=== PATIENT | female | born 1960 | race Caucasian/White ===

== ENCOUNTER 2017-11-13 00:09 | Inpatient (IN) | payer OTHER ==
[~2017-11-13] VITALS: Ht 154.9 cm; Wt 75.7 kg
[2017-11-13 00:13] VITALS: BP 138/92
--- NOTE | 2017-11-13 00:25 | NUR ---
PATIENT AMBULATED TO ER BED 11.
--- NOTE | 2017-11-13 00:27 | NUR ---
PATIENT IS A 57 Y/O FEMALE WHO PRESENTS TO THE ED C/O ABD PAIN. PT STATES, "MY STOMACH STARTED HURTING AT 1800 YESTERDAY." PT REPORTS 8/10 DULL, PUSHING UPPER ABD PAIN THAT DOES NOT RADIATE. PT DENIES CP, SOB, N/V/D. PT AAOX4, RR EVEN/UNLABORED. PT AAOX4, RR EVEN/UNLABORED. PT REPOSITIONED FOR COMFORT, BED IN LOWEST POSITION. ER MD DR. SALAZAR NOTIFIED. WILL CONTINUE TO MONITOR.
[2017-11-13] MEDS ORDERED: MORPHINE SULFATE 4 MG/ML SYR IM ONE (00:35)
[2017-11-13 01:05] LABS: HEMATOCRIT 41.2 % (36-48); HEMOGLOBIN 13.6 g/dL (12.0-16.0); MEAN CORPUSCULAR HEMOGLOBIN 29 pg (27-31); MEAN CORPUSCULAR HGB CONC 33 g/dL (33-37); MEAN CORPUSCULAR VOLUME 87 fL (80-94); PLATELET COUNT (AUTO) 246 K/uL (140-450); RED BLOOD CELL COUNT(AUTO) 4.73 MIL/uL (4.20-5.40); RED CELL DISTRIBUTION WIDTH 13.1 % (11.6-13.7); WHITE BLOOD COUNT (AUTO) 6.3 K/uL (4.8-10.8)
[2017-11-13 01:05] LABS: APPEARANCE,URINE CLEAR (CLEAR); BILIRUBIN,URINE NEGATIVE (NEGATIVE); BLOOD, URINE 1+ (NEGATIVE); COLOR,URINE YELLOW (YELLOW); LEUKOCYTE ESTERASE ,URINE NEGATIVE (NEGATIVE); NITRITE, URINE NEGATIVE (NEGATIVE); PH,URINE 5.5 (5.0-9.0); UGLUCOSE NEGATIVE (NEGATIVE)
[2017-11-13 01:26] LABS: LYMPHOCYTES % (MANUAL) 40 % (20-46); MONOCYTES % (MANUAL) 11 % (5-12)
[2017-11-13 01:27] LABS: ANION GAP 11.9 (8-16); CARBON DIOXIDE 27.3 mmol/L (21-32); CREATININE 0.8 mg/dL (0.6-1.3); POTASSIUM 4.2 mmol/L (3.5-5.1)
[2017-11-13 01:28] LABS: ALBUMIN 3.5 g/dL (3.4-5.0); TOTAL BILIRUBIN 0.4 mg/dL (0.0-1.0)
[2017-11-13 01:31] LABS: RBC,URINE 0-5 (RARE) /HPF (0-5); WBC,URINE 0-5 (RARE) /HPF (0-5)
[2017-11-13] MEDS ORDERED: NACL 0.9% 1,000 ML IV ONE (01:35)
[2017-11-13] MEDS ORDERED: ACETAMINOPHEN 325 MG TAB PO PRN (02:40)
[2017-11-13] MEDS ORDERED: MORPHINE SULFATE 4 MG/ML SYR IVP PRN ×2 (02:40→06:45)
[2017-11-13] MEDS ORDERED: DOCUSATE SODIUM 100 MG GELCAP PO PRN (02:40)
[2017-11-13] MEDS ORDERED: HYDROcodone/APAP 7.5/325 MG 1 TAB PO PRN (02:40)
[2017-11-13] MEDS ORDERED: ONDANSETRON 4 MG/2 ML VIAL IM/IVP PRN (02:40)
--- NOTE | 2017-11-13 02:49 | NUR ---
Patient will be admitted to care of DR. MILLS. Admited to TELE. Will go to room 106B. Belongings list completed. Report to ELVIA MCLEAN.
--- NOTE | 2017-11-13 02:56 | NUR ---
RECEIVED HANDOFF REPORT FROM AM RN. PATIENT A&OX4. PATIENT DENIES PAIN. IV SITE PATENT AND INTACT. FRIEND AT BEDSIDE. PATIENT ORIENTED TO ROOM. NO SIGNS OR SYMPTOMS OF ACUTE DISTRESS NOTED. SAFETY MEASURES ENSURED. CALL LIGHT WITHIN REACH. WILL CONTINUE TO MONITOR.
--- NOTE | 2017-11-13 03:15 | NUR ---
IN TO SEE PATIENT.
[2017-11-13 03:51] LABS: PROTHROMBIN TIME 10.4 secs (10.8-13.4)
[2017-11-13 03:52] LABS: CHOL/HDL RATIO 3.6 (1-4.5); FREE T4 (FREE THYROXINE) 0.89 ng/dL (0.76-1.46); THYROID STIMULATING HORMONE 2.42 uIU/mL (0.34-3.74)
[2017-11-13 04:00] VITALS: BP 137/76
[2017-11-13] MEDS: NACL 0.9% 1,000 ML IV SCH ×3 (04:29→20:20)
[2017-11-13] MEDS ORDERED: KETOROLAC 30 MG/ML VIAL IM PRN (06:45)
[2017-11-13 07:36] LABS: HEMATOCRIT 38.1 % (36-48); MEAN CORPUSCULAR HEMOGLOBIN 29 pg (27-31); MEAN CORPUSCULAR HGB CONC 34 g/dL (33-37); MEAN CORPUSCULAR VOLUME 85 fL (80-94); PLATELET COUNT (AUTO) 220 K/uL (140-450); RED BLOOD CELL COUNT(AUTO) 4.46 MIL/uL (4.20-5.40); RED CELL DISTRIBUTION WIDTH 12.9 % (11.6-13.7); WHITE BLOOD COUNT (AUTO) 5.5 K/uL (4.8-10.8)
--- NOTE | 2017-11-13 07:37 | NUR ---
ENDORSED PLAN OF CARE TO AM RN. PATIENT IN STABLE CONDITION.
--- NOTE | 2017-11-13 07:45 | NUR ---
RECEIVED PATIENT REPORT FROM CHARGE NURSE. PATIENT IS AWAKE AT THIS TIME. PATIENT A&OX4. PATIENT COMPLAINS OF NO PAIN AT THIS TIME. PATIENT SHOWS NO SIGNS OF RESPIRATORY DISTRESS OR RESPIRATORY DEPRESSION. PATIENT AWARE OF URINE STRAINING. WILL CONTINUE TO MONITOR PATIENT.
[2017-11-13 08:00] VITALS: BP 122/53
[2017-11-13 08:04] LABS: MAGNESIUM 1.9 mg/dL (1.8-2.4); PHOSPHORUS 3.6 mg/dL (2.5-4.9)
[2017-11-13 08:36] LABS: BASOPHILS % (MANUAL) 0 % (0-2); EOSINOPHILS % (MANUAL) 3 % (0-4); LYMPHOCYTES % (MANUAL) 50 % (20-46); MONOCYTES % (MANUAL) 8 % (5-12)
[2017-11-13] MEDS: TAMSULOSIN 0.4 MG CAP PO SCH (08:48)
--- NOTE | 2017-11-13 11:15 | NUR ---
PATIENT RESTING AT THIS TIME. PATIENT COMPLAINS OF NO PAIN. PATIENT RESPIRATIONS ARE UNLABORED AND SYMMETRICAL. WILL CONTINUE TO MONITOR PATIENT.
[2017-11-13 12:00] VITALS: BP 125/60
[2017-11-13 13:28] LABS: ANION GAP 12.2 (8-16); CARBON DIOXIDE 22.4 mmol/L (21-32); POTASSIUM 3.6 mmol/L (3.5-5.1)
[2017-11-13 13:29] LABS: CREATININE 0.7 mg/dL (0.6-1.3)
--- NOTE | 2017-11-13 13:50 | NUR ---
PATIENT IS RESTING IN BED. NO COMPLAINTS OF PAIN AT THIS TIME. WILL CONTINUE TO MONITOR PATIENT
--- NOTE | 2017-11-13 15:00 | NUR ---
PATIENT IS ASLEEP AT THIS TIME. NO COMPLAINTS OF PAIN. WILL CONTINUE TO MONITOR PATIENT.
[2017-11-13 16:00] VITALS: BP 123/53
--- NOTE | 2017-11-13 17:30 | NUR ---
GAVE REPORT TO NIGHTSHIFT NURSE RIVKA. PATIENT IS IN STABLE CONDITION.
--- NOTE | 2017-11-13 19:13 | NUR ---
PATIENT REPORT GIVEN AT BEDSIDE. PATIENT ENDORSED IN STABLE CONDITION.
--- NOTE | 2017-11-13 19:20 | NUR ---
RECEIVED REPORT FROM AM NURSE. PT RESTING IN BED, AOX4, AMBULATORY, ABLE TO VERBALIZE NEEDS. PT DENIES ABD PAIN AT THIS TIME. ABD SOFT, ROUND. PT DENIES N/V/D. PT REPORTS TOLERATING CLEAR LIQUID DIET THIS DINNER WELL. PT REPORTS SMALL SOFT BM TODAY. PT VOIDED CLEAR YELLOW 600ML URINE, STRAINED, NO STONES NOTED, WILL CONTINUE TO STRAIN. DISCUSSED AND REVIEWED PLAN OF CARE WITH PT. PT VERBALIZED UNDERSTANDING. ALL NEEDS MET. IVF INFUSING WELL. SAFETY MEASURES ENSURED. CALL LIGHT WITHIN REACH.
[2017-11-13 20:00] VITALS: BP 128/68
--- NOTE | 2017-11-13 21:02 | NUR ---
PT SLEEPING COMFORTABLY, ALL NEEDS MET. IVF INFUSING WELL. SAFETY MEASURES ENSURED. CALL LIGHT WITHIN REACH.
--- NOTE | 2017-11-13 23:30 | NUR ---
PT RESTING COMFORTABLY, PT DENIES ABD PAIN, N/V. STRAINED 400ML OF CLEAR YELLOW URINE, NO STONE NOTED. ALL NEEDS MET. IVF INFUSING WELL. SAFETY MEASURES ENSURED. CALL LIGHT WITHIN REACH.
[2017-11-14] VITALS: BP 122/54
--- NOTE | 2017-11-14 04:00 | NUR ---
PT SLEEPING COMFORTABLY, RESPIRATIONS EVEN AND UNLABORED. ALL NEEDS MET. IVF INFUSING WELL. SAFETY MEASURES ENSURED. CALL LIGHT WITHIN REACH.
[2017-11-14] MEDS: NACL 0.9% 1,000 ML IV SCH ×2 (04:01→12:21)
[2017-11-14 07:03] LABS: HEMOGLOBIN 12.7 g/dL (12.0-16.0); MEAN CORPUSCULAR HEMOGLOBIN 29 pg (27-31); MEAN CORPUSCULAR HGB CONC 34 g/dL (33-37); MEAN CORPUSCULAR VOLUME 87 fL (80-94); PLATELET COUNT (AUTO) 209 K/uL (140-450); RED BLOOD CELL COUNT(AUTO) 4.37 MIL/uL (4.20-5.40); WHITE BLOOD COUNT (AUTO) 4.5 K/uL (4.8-10.8)
[2017-11-14 07:15] LABS: MAGNESIUM 1.8 mg/dL (1.8-2.4); PHOSPHORUS 3.2 mg/dL (2.5-4.9)
--- NOTE | 2017-11-14 07:15 | NUR ---
ENDORSED PLAN OF CARE TO AM NURSE. CONDITION STABLE.
--- NOTE | 2017-11-14 07:16 | NUR ---
RECEIVED REPORT FROM FIELD ARTILLERY OPERATIONS SPECIALIST NURSE WANDA AT BEDSIDE FOR CONTINUITY OF CARE. PT IS AWAKE AND ORIENTED. INTRODUCED SELF AND UPDATED BOARD. PT DENIES PAIN. O2 SAT 100% ON RA. IV TO L HAND 22G WITH NS INFUSING AT 120ML/HR. SKIN WARM AND DRY. NO SIGNS OF DISTRESS. BED IN LOW POSITION, WHEELS LOCKED, CALL LIGHT WITHIN REACH. WILL CONTINUE TO MONITOR.
[2017-11-14 07:19] LABS: ANION GAP 13.9 (8-16); CARBON DIOXIDE 22.7 mmol/L (21-32); CREATININE 0.6 mg/dL (0.6-1.3); POTASSIUM 3.6 mmol/L (3.5-5.1)
[2017-11-14 07:49] LABS: LYMPHOCYTES % (MANUAL) 38 % (20-46); MONOCYTES % (MANUAL) 6 % (5-12)
[2017-11-14 08:00] VITALS: BP 131/58
--- NOTE | 2017-11-14 08:20 | NUR ---
PATIENT HAS BEEN SCREENED AND CATEGORIZED MODERATE NUTRITION RISK. PATIENT WILL BE SEEN WITHIN 3-5 DAYS OF ADMISSION. 11/15/17-11/17/[address]
[2017-11-14] MEDS: TAMSULOSIN 0.4 MG CAP PO SCH (09:13)
[2017-11-14 10:08] LABS: LACTATE DEHYDROGENASE 143 IU/L (119-226)
[2017-11-14] MEDS ORDERED: TAMS0.4C96 PO (13:17)
[2017-11-14] MEDS ORDERED: ACET-1182 PO (13:17)
[2017-11-14] MEDS ORDERED: ONDA4TAB PO (13:17)
--- NOTE | 2017-11-14 14:12 | NUR ---
PT D/C TO GO HOME. GAVE D/C FORMS, INSTRUCTIONS, RX, LABS, AND FOLLOW UP APPOINTMENT. PT VERBALIZED UNDERSTANDING AND SIGNED FORMS. REMOVED IV FROM L FA 22G. IV CATHETER TIP INTACT. APPLIED DRESSING AND PRESSURE TO SITE. NO BLEEDING NOTED. REMOVED ID BAND. PT CHANGED IN OWN CLOTHES AND LEFT WITH ALL PERSONAL BELONGINGS. PT LEFT UNIT VIA AMBULATION ACCOMPANIED BY DAUGHTER. PT LEFT IN STABLE CONDITION.
--- NOTE | 2017-11-15 14:31 | NUR ---
LATE ENTRY FOR 11/14/17 INITIAL REVIEW AND DISCHARGE SUMMARY [phone] REF# [id number] PH# [phone], ATTN: SYEDA JORGENSEN RN BSN (UTILIZATION MANAGEMENT NURSE AIR DEFENSE CONTROL OFFICER) PH# [phone]
[2017-11-16 07:23] LABS: LD1 FRACTION 20 % (17-32); LD2 FRACTION 40 % (25-40); LD3 FRACTION 23 % (17-27); LD4 FRACTION 8 % (5-13); LD5 FRACTION 9 % (4-20)
== END 2017-11-14 14:12 | disposition home or self-care (01) | DRG 440 ==
LOC: MED 00:09 → MTU 02:41
PROVIDERS: ADMIT Family Medicine Sports Medicine; ATTEND Family Medicine Sports Medicine
DX: K85.90 Acute pancreatitis without necrosis or infection, unspecified (principal); I67.1 Cerebral aneurysm, nonruptured; K76.0 Fatty (change of) liver, not elsewhere classified; E66.9 Obesity, unspecified; N20.0 Calculus of kidney; E78.5 Hyperlipidemia, unspecified; R74.0 Nonspecific elevation of levels of transaminase and lactic acid dehydrogenase [LDH]; K21.9 Gastro-esophageal reflux disease without esophagitis; Z68.30 Body mass index [BMI] 30.0-30.9, adult; Z88.2 Allergy status to sulfonamides
CPT/HCPCS: 36415; 71045; 76705; 80048; 80053; 81001; 81025; 82150; 83036; 83625; 83690; 83735; 83880; 84100; 84436; 84439; 84443; 84479; 85025; 85610; 85730; 87081; 93005; 96360; 96372; 99285; J2270; J7030; Q0092